=== PATIENT | female | born 1970 | race Caucasian/White ===

== ENCOUNTER 2024-12-17 11:51 | Inpatient (IN) | payer BC, SELFPAY ==
[2024-12-17] VITALS (18 sets, daily range): BP systolic 95–125; BP diastolic 62–79; PULSE 72–114; RESP 16–28; TEMP 36.6–36.7; O2SAT 80–96; BMI 17.2; BMI 16.1
--- NOTE | 2024-12-17 12:31 | XRR_ITS ---
PROCEDURE INFORMATION: Exam: XR Chest Exam date and time: 12/17/2024 12:43 PM Age: 54 years old Clinical indication: Cough and shortness of breath; SOB; Cough; Chest congestion TECHNIQUE: Imaging protocol: Radiologic exam of the chest. Views: 1 view. Total images: 1 COMPARISON: No relevant prior studies available. FINDINGS: Lungs: Pulmonary hyperexpansion with a upper lobe hyperlucency and lung base bronchovascular crowding consistent with emphysema. No lobar consolidation is evident. A focal density of approximately 8 mm projects in the left mid lung laterally and could potentially represent a small pulmonary nodule. Pleural spaces: Blunting of the left costophrenic angle, consistent with small left pleural effusion or pleural thickening. Heart/Mediastinum: Cardiomediastinal silhouette is not enlarged. Bones/joints: No acute osseous abnormality identified. XR/XR chest 1V portable [id number] IMPRESSION: 1. Severe pulmonary emphysema. 2. Patchy densities primarily in the lung bases are of undetermined age without prior studies for comparison. These could represent acute infection superimposed on chronic lung disease, or could all represent sequelae of chronic lung disease. 3. Possible 8 mm nodule left mid lung, appropriate follow-up recommended with CT.
[2024-12-17] MEDS: ipratropium-albuterol 3 mL Neb INHALATION (12:42)
--- NOTE | 2024-12-17 12:42 | W.ED.SOB ---
HPI - SOB/Dyspnea General: Chief Complaint: Shortness of Breath/Dyspnea Stated Complaint: sob Time Seen by Provider: 12/17/24 12:33 Source: patient and family Mode of arrival: ambulatory Limitations: no limitations History of Present Illness: HPI Narrative: This patient was referred to the emergency department by the urgent care clinic. Patient's known tobacco user who states that she periodically gets bronchitis in the wintertime and gets a prescription for a Z-Ricardo and improved. She takes states that approximately 2 weeks ago she started having increasing productive cough and congestion. She did not get her usual treatment and eventually continued to worsen with increasing shortness of breath decreased appetite and decreased intake. 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 She denies influenza vaccine or other vaccines such as COVID-19, RSV etc. She has had fever at home. She does not wear her oxygen at home. No ongoing chest pain vomiting or diarrhea. She has never been hospitalized for any breathing issues. MD elicited complaint: shortness of breath and cough Associated symptoms: Reports fever(s); Deny abdominal pain, chest pain, extremity pain, nausea, palpitations, polydipsia, polyuria, syncope or vomiting Related Data Previous Rx's ?Medication ?Instructions ?Recorded alprazolam 0.5 mg tablet 0.5 mg PO BEDTIME PRN sleep #30 07/24/24 tabs Allergies Allergy/AdvReac Type Severity Reaction Status Date / Time Penicillins AdvReac Intermediate hives Verified 12/17/24 11:27 Review of Systems Const: Reports: fever(s) and chills Eyes: Denies: change in vision ENMT: Denies: throat pain, odynophagia, nasal discharge or nasal congestion Card: Denies: chest pain, palpitations, irregular heart rhythm or syncope Resp: Reports: dyspnea, productive cough and wheezing GI: Denies: abdominal pain, nausea, vomiting or diarrhea : Denies: flank pain, difficulty voiding, dysuria or urinary frequency Musc: Denies: neck pain, back pain, extremity pain or extremity swelling Skin/Breast: Denies: rash Endo: Denies: polyuria or polydipsia Gianfranco/Lymph: Denies: easy bruising or easy bleeding PFS ED PFSH: Medical History (Updated 12/17/24 @ 14:16 by Shukri Quintanilla DO) Insomnia Social History (System 09/06/24 @ 09:49 by Rina Roberto Smoking and tobacco/nicotine status: current every day tobacco/nicotine user Physical Exam Narrative: EXAM NARRATIVE: She is alert and speaks in complete sentences while wearing nasal oxygen. She is very thin appearing but appears to be comfortable Const: COMMON NORMALS: patient oriented x3 and alert GENERAL APPEARANCE: cooperative NUTRITIONAL APPEARANCE: thin ORIENTATION/CONSCIOUSNESS: Yes awake HENMT: COMMON NORMALS: normocephalic, Normal nasal mucous membranes and turbinates present, moist oral mucous membranes and oropharynx normal HEAD & SCALP: normocephalic FACE & SINUS: normal facial exam NOSE: Normal nasal mucous membranes and turbinates present Eye: COMMON NORMALS: Equal, round and reactive pupils present, EOMs intact bilaterally and conjunctivae normal CONJUNCTIVA: Yes conjunctivae normal PUPIL: Yes Equal, round and reactive pupils present Neck/C-Spine: COMMON NORMALS: full ROM, no lymphadenopathy, no JVD and No carotid bruits Chest: COMMONS NORMALS: normal inspection of the chest Resp: AUSCULTATION: rhonchi throughout and wheezes throughout Cardio: COMMON NORMALS: no JVD, regular rate and No murmurs present (Cardio) RATE: regular rate GI: COMMON NORMALS: Normal to inspection, nondistended, normoactive bowel sounds present, Soft to palpation and non-tender PALPATION: Yes Soft to palpation : COMMON NORMALS: Yes no CVA tenderness BLADDER/KIDNEY EXAM: Yes no CVA tenderness Back/Pelvis: COMMON NORMALS: no CVA tenderness, thoracic and lumbar spine normal to inspection and no thoracic nor lumbar tenderness Extremity: COMMON NORMALS: normal to inspection, full ROM, capillary refill normal, no calf tenderness and no pedal edema Neuro: COMMON NORMALS: patient oriented x3, moves all extremities, no focal motor deficits and no sensory deficits noted SENSORIUM/ORIENTATION: Yes alert Psych: COMMON NORMALS: mental status grossly normal Skin: COMMON NORMALS: no rashes or lesions noted and no petechiae GENERAL SKIN EXAM: no rashes or lesions noted Course Reevaluation(s): Reevaluation #1: I informed the patient and her spouse that she has findings of bilateral pneumonia and his oxygen requiring and would benefit from inpatient care. Consultations: Consultation #1: Discussed with Dr. Cox who agreed to place the patient in the hospital for treatment. He did request a D-dimer testing although the patient has no history of thromboembolic disease and no current risk factors for same. Time: 14:07 Vital Signs: Vital signs: Vital Signs Temperature 98.1 F 12/17/24 11:53 Pulse Rate 111 H 12/17/24 12:52 Respiratory Rate 16 12/17/24 12:44 Blood Pressure 121/62 12/17/24 11:53 Pulse Oximetry 94 12/17/24 13:05 Oxygen Delivery Me thod Nasal Cannula 12/17/24 12:44 Oxygen Flow Rate 4 12/17/24 12:44 MDM - SOB/Dyspnea Medical Decision Making This patient presented to the emerged part as noted in the HPI. She had approximately 10 to 14-day duration of illness with productive cough shortness of breath and eventually made her way to the urgent care as noted. Was noted to be hypoxic at that time. She has a chronic tobacco user but no known history of COPD thromboembolic events CHF etc. Differential included likely pneumonia versus exacerbation of undiagnosed COPD, viral illness etc. Her clinical exam also noted that she had findings suggestive of pneumonia as well. Imaging obtained revealed bilateral patchy infiltrates, she had a leukocytosis, a arterial blood gas did not show any significant CO2 retention. Because of her new oxygen requirement and her leukocytosis even though she is taking oral fluids well I think it is reasonable for her to put in observation status for continued treatment and evaluation of response to ensure that she can be discharged safely without any additional oxygen requirement. Lab Data I reviewed the patient's lab results. 12/17/24 12:45 12/17/24 12:45 Labs/Radiology: Radiology Impressions Chest X-Ray 12/17/24 12:31 IMPRESSION: 1. Severe pulmonary emphysema. 2. Patchy densities primarily in the lung bases are of undetermined age without prior studies for comparison. These could represent acute infection superimposed on chronic lung disease, or could all represent sequelae of chronic lung disease. 3. Possible 8 mm nodule left mid lung, appropriate follow-up recommended with CT. Laboratory Results WBC 21.17 10^3/uL (3.29-11.43) H 12/17/24 12:45 RBC 5.45 10^6/uL (3.85-5.65) 12/17/24 12:45 Hgb 15.10 g/dL (11.27-16.99) 12/17/24 12:45 Hct 47.6 % (36-47) H 12/17/24 12:45 MCV 87.3 fl (85-98) 12/17/24 12:45 MCH 27.7 pg (27-33) 12/17/24 12:45 MCHC 31.7 g/dL (30-55) 12/17/24 12:45 RDW 13.9 % (12.1-15.1) 12/17/24 12:45 Plt Count 414 10^3/cmm (157-399) H 12/17/24 12:45 MPV 10.4 fL (7.4-10.4) 12/17/24 12:45 Neut % (Auto) 88.2 % 12/17/24 12:45 Lymph % (Auto) 4.9 % 12/17/24 12:45 Camp % (Auto) 5.5 % 12/17/24 12:45 Eos % (Auto) 0.1 % 12/17/24 12:45 Baso % (Auto) 0.3 % 12/17/24 12:45 Neut # (Auto) 18.66 10^3/uL (1.8-7.7) H 12/17/24 12:45 Lymph # (Auto) 1.0 10^3/uL (0.8-4.8) 12/17/24 12:45 Camp # (Auto) 1.2 10^3/uL (0.2-0.9) H 12/17/24 12:45 Eos # (Auto) 0.0 10^3/uL (0.0-0.8) 12/17/24 12:45 Baso # (Auto) 0.1 10^3/uL (0.0-0.1) 12/17/24 12:45 Nucleated RBC % (auto) 0 % 12/17/24 12:45 Nucleated RBCs # 0.0 /100WBC 12/17/24 12:45 Specimen Type Arterial 12/17/24 12:45 Sample Site Brachial, right 12/17/24 12:45 ABG pH 7.44 (7.35-7.45) 12/17/24 12:45 ABG pCO2 48.1 mmHg (35-45) H 12/17/24 12:45 ABG pO2 79.0 mmHg (80.0-100.0) L 12/17/24 12:45 ABG PO2/FiO2 Ratio 219 12/17/24 12:45 ABG HCO3 32.8 mmol/L (22-26) H 12/17/24 12:45 ABG Base Excess 7.3 mmol/L (-2.0-2.0) H 12/17/24 12:45 Jorge Test Pos 12/17/24 12:45 Hematocrit 45.4 % (37-47) 12/17/24 12:45 Hgb O2 Saturation 94.1 % (95-100) L 12/17/24 12:45 Carboxyhemoglobin 1.7 %THgb (0.4-20.1) 12/17/24 12:45 Methemoglobin 0.2 % (0.4-1.5) L 12/17/24 12:45 Total Hemoglobin 14.8 g/dL (12-16) 12/17/24 12:45 O2 Delivery Device Nc 12/17/24 12:45 O2 Liters/Min 4.0 % 12/17/24 12:45 FiO2 36.0 % 12/17/24 12:45 Primary Montessori Teacher ID Monro 12/17/24 12:45 Sodium 144 mmol/L (136-145) 12/17/24 12:45 Potassium 3.7 mmol/L (3.5-5.1) 12/17/24 12:45 Chloride 98 mmol/L (98-107) 12/17/24 12:45 Carbon Dioxide 32 mmol/L (22-29) H 12/17/24 12:45 Anion Gap 17.7 (5-19) 12/17/24 12:45 BUN 21 mg/dL (6-20) H 12/17/24 12:45 Creatinine 0.4 mg/dL (0.5-0.9) L 12/17/24 12:45 GFR Calculation 167.6 mL/min (90-130) H 12/17/24 12:45 Glucose 131 mg/dL (65-115) H 12/17/24 12:45 Calculated Osmolality 303 mOsm/kg (285-295) H 12/17/24 12:45 Lactic Acid 1.7 mmol/L (0.5-2.2) 12/17/24 12:45 Calcium 9.2 mg/dL (8.5-10.5) 12/17/24 12:45 Total Bilirubin 0.4 mg/dL (0.15-1.2) 12/17/24 12:45 AST 14 U/L (0-32) 12/17/24 12:45 ALT 15 U/L (0-33) 12/17/24 12:45 Alkaline Phosphatase 126 U/L (35-105) H 12/17/24 12:45 NT-Pro-B Natriuret Pep 869 pg/mL (0-125) H 12/17/24 12:45 Total Protein 7.4 g/dL (6.6-8.7) 12/17/24 12:45 Albumin 3.6 g/dL (3.5-5.2) 12/17/24 12:45 Globulin 3.8 g/dL (1.3-4.6) 12/17/24 12:45 All radiology interpretation(s) finalized by discharge Discharge Plan Discharge Patient Disposition: Placed in Observation Clinical Impression: Community acquired pneumonia, Acute exacerbation of chronic obstructive airways disease Condition: Stable Prescriptions: No Action alprazolam 0.5 mg tablet 0.5 mg PO BEDTIME PRN (Reason: sleep) Qty: 30 5RF Referrals: Nasim Caballero MD [Primary Care Provider] - Print Language: Prydeinig Coding Level of Care Code ED Senior Sql Server Developer for Marizol Small
[2024-12-17 12:57] LABS: ABG PCO2 48.1 mmHg (35-45); ABG PH Result 7.44 (7.35-7.45); Arterial Blood Gas Hematocrit 45.4 % (37-47); Base Excess ABG 7.3 mmol/L (-2.0-2.0); Blood Gas Allen Test Pos; Blood Gas Sample Type Arterial; Carboxyhemoglobin 1.7 %THgb (0.4-20.1); HCO3 ABG 32.8 mmol/L (22-26); HGB O2 Sat 94.1 % (95-100); Methemoglobin 0.2 % (0.4-1.5); Total Hemoglobin 14.8 g/dL (12-16)
[2024-12-17 12:58] LABS: Basophils # 0.1 10^3/uL (0.0-0.1); Basophils % 0.3 %; Blood Gas Operator Identificat MONRO; Blood Gas Sample Site Brachial, right; Eosinophils % 0.1 %; Hematocrit 47.6 % (36-47); Lymphocytes % 4.9 %; Mean Corpuscular HGB Conc 31.7 g/dL (30-55); Mean Corpuscular Hemoglobin 27.7 pg (27-33); Mean Corpuscular Volume 87.3 fl (85-98); Mean Platelet Volume 10.4 fL (7.4-10.4); Monocytes # 1.2 10^3/uL (0.2-0.9); Monocytes % 5.5 %; Neutrophils # 18.66 10^3/uL (1.8-7.7); Neutrophils % 88.2 %; Nucleated Red Blood Cells % 0 %; Oxygen Device NC; PO2 FiO2 Ratio Arterial Blood 219; Platelet Count 414 10^3/cmm (157-399); Red Blood Count 5.45 10^6/uL (3.85-5.65); Red Cell Distribution Width 13.9 % (12.1-15.1); White Blood Count 21.17 10^3/uL (3.29-11.43)
[2024-12-17] MEDS: methylPREDNISolone sod succ 125 mg/2 mL INJ 60 MG IVP (13:07)
[2024-12-17] MEDS: lactated ringers 1,000 ML 999 ML IV (13:07)
[2024-12-17 13:10] LABS: Lactic Sepsis W/Reflex 1.7 mmol/L (0.5-2.2)
[2024-12-17 13:22] LABS: Alanine Aminotransferase 15 U/L (0-33); Albumin Level 3.6 g/dL (3.5-5.2); Alkaline Phosphatase 126 U/L (35-105); Anion Gap 17.7 (5-19); Aspartate Amino Transferase 14 U/L (0-32); Blood Urea Nitrogen 21 mg/dL (6-20); Calcium 9.2 mg/dL (8.5-10.5); Carbon Dioxide 32 mmol/L (22-29); Chloride 98 mmol/L (98-107); Creatinine Clr Calc Pharmacy 122.3686; Globulin 3.8 g/dL (1.3-4.6); Glomerular Filtration Rate 167.6 mL/min (90-130); Glucose 131 mg/dL (65-115); NT Pro B Type Natriuretic Pept 869 pg/mL (0-125); Osmolality Calculated 303 mOsm/kg (285-295); Potassium 3.7 mmol/L (3.5-5.1); Sodium 144 mmol/L (136-145); Total Bilirubin 0.4 mg/dL (0.15-1.2); Total Protein 7.4 g/dL (6.6-8.7)
--- NOTE | 2024-12-17 13:55 | ECG_ITS ---
[facility] Date: 2024-12[facility]17 Pat Name: Monika Meng (Marie) Department: Room: [facility] Gender: Female Sample Maker: : 1970 Requested By: Shukri Quintanilla Order Number: [id number] Reading MD: NEIDA KELLY Measurements Intervals [place] Rate: 96 P: 82 [place]: 140 QRS: 80 QRSD: 90 T: 66 QT: 384 QTc: 487 Interpretive Statements SINUS RHYTHM POSSIBLE RIGHT VENTRICULAR CONDUCTION DELAY [RSR (QR) IN V1/V2] No previous ECG available for comparison Electronically Signed On 12-17-2024 20:46:39 DEVELOPER [employer]ATE by NEIDA KELLY [email or web address]
[2024-12-17 14:25] LABS: D Dimer 1.38 ug/mLFEU (0-0.59)
--- NOTE | 2024-12-17 14:27 | CTR_ITS ---
PROCEDURE INFORMATION: Exam: CTA Chest With Contrast Exam date and time: 12/17/2024 2:53 PM Age: 54 years old Clinical indication: Abnormal findings; Abnormal diagnostic tests; Elevated d-dimer; Hyperventilation; Additional info: Hypoxia, elevated dimer, tachy TECHNIQUE: Imaging protocol: Computed tomographic angiography of the chest with contrast. Exam focused on the arteries. 3D rendering (Not supervised by radiologist): MIP and/or 3D reconstructed images were created by the technologist. Total images: 962 Radiation optimization: All CT scans at this facility use at least one of these dose optimization techniques: automated exposure control; mA and/or kV adjustment per patient size (includes targeted exams where dose is matched to clinical indication); or iterative reconstruction. Contrast material: OMNIPAQUE 350; Contrast volume: 61 ml; Contrast route: INTRAVENOUS (IV); COMPARISON: CR (CHEST, ) 12/17/2024 12:43 PM RADIATION DOSE METRICS: Total DLP (mGy-cm): 161.11 FINDINGS: Limitations: Mild motion artifact. Pulmonary arteries: No pulmonary artery embolus is identified. The main pulmonary artery is not significantly enlarged measuring approximately 21 mm. Aorta: The thoracic aorta is not enlarged. Lungs: Image portions of the distal trachea as well as right and left mainstem bronchi are patent. Severe centrilobular emphysema. Biapical pleural-parenchymal densities most consistent with scarring. Scattered tree-in-bud opacities are identified, most prominent in the right lower lobe (series 5, image 52) scattered nodular densities including a 4 x 6 mm right lower lobe nodule (series 7, image 443). Consolidation anteroinferiorly in the right middle lobe. Peripheral right lower lobe 7 mm nodule on series 7, image 459 and consolidated densities in the left lingula in particular. Multifocal smooth peribronchial thickening. Pleural spaces: No pleural effusion or pneumothorax identified. Heart: The heart is not enlarged. No pericardial effusion. Lymph nodes: Borderline aortopulmonary window lymph nodes up to 1 cm. Enlarged subcarinal node at 1.2 cm. Enlarged right hilar nodes at up to 1.2 cm short axis, and borderline left hilar nodes up to 1 cm. Bones/joints: Osseous structures demonstrate no acute appearing abnormality. Soft tissues: No soft tissue fluid collection identified.. Other findings: Imaged upper abdomen demonstrates no acute appearing abnormality. CT/CT angio chest PE protcl [id number] IMPRESSION: 1. No pulmonary artery embolus identified. 2. Prominent mediastinal and bilateral hilar nodes are nonspecific but may be reactive given pulmonary findings. 3. Severe emphysema. Peribronchial thickening suggesting a component of chronic bronchitis. 4. Multiple areas of tree-in-bud opacity. Tree-in-bud opacities carry a broad differential diagnosis, but are most commonly reloated to small airways disease: infectious bronchiolitis (viral, mycoplasma, mycobacterial, other), or aspiration. Other etiologies would be considered in the appropriate clinical context. 5. Scattered somewhat nodular appearing densities, measuring up to 7 mm.For patients at low risk (minimal or absent history of smoking and of other known risk factors), recommend CT Chest at 3-6 months, then consider CT Chest at 18-24 months. For patients at high risk (history of smoking or of other known risk factors), recommend CT Chest at 3-6 months, then CT Chest at 18-24 months. (Reference: Rock) 6. Scattered consolidated densities that are nonspecific but may represent pneumonia 7. . Please see above additional comments. COMMENTS: The presence of pulmonary emphysema on CT is an independent risk factor for lung cancer. In the absence of a history or active diagnosis of lung cancer, it is recommended that this patient with emphysema be evaluated for enrollment in a low dose CT lung cancer screening program. REFERENCES: Rock Brewer et al. Guidelines for Management of Incidental Pulmonary Nodules Detected on CT Images: From the Fleischner Society 2017. Radiology. 2017;284(1):228-243.
[2024-12-17 14:30] LABS: Troponin(5th) Baseline < 6 ng/L (0-10)
[2024-12-17] MEDS: cefTRIAXone 2,000 mg SDV 2000 MG IVP (14:36)
[2024-12-17] MEDS: AZITHROMYCIN ADD-Vantage 500 MG in 0.9% NaCl ADD-Vantage 250 ML 250 MG IV (14:36)
[2024-12-17 14:38] LABS: Procalcitonin 0.05 ng/mL (0-0.5)
[2024-12-17 14:55] LABS: Influenza A NEGATIVE (Negative); Influenza B NEGATIVE (Negative); Respiratory Syncytial Virus Ce NEGATIVE (Negative); SARS-CoV-2 PCR NEGATIVE (Negative)
[2024-12-17] MEDS: iohexol 350 mg/mL 500 mL Btl (per mL) IV (14:59)
[2024-12-17 15:44] LABS: Troponin 5 2HR 7.31 ng/L (0-10); Troponin 5 2HR Delta 1.31001 ABS# (0-10)
[2024-12-17 15:55] LABS: Estmated Average Glucose 128; Hemoglobin A1C 6.1 % (4.0-6.0)
--- NOTE | 2024-12-17 15:55 | ECG_ITS ---
[facility] Test Date: 2024-12-17 Pat Name: Monika Meng (Marie) Department: Room: [facility] Gender: Female Fur Blender: : 1970 Requested By: Shukri Quintanilla Order Number: [id number] Reading MD: NEIDA KELLY Measurements Intervals [place] Rate: 92 P: 84 [place]: 143 QRS: 72 QRSD: 93 T: 58 QT: 391 QTc: 484 Interpretive Statements SINUS RHYTHM WITH SINUS ARRHYTHMIA INCOMPLETE RIGHT BUNDLE BRANCH BLOCK [90+ ms QRS DURATION, TERMINAL R IN V1/V2, 40+ ms S IN I/aVL/V4/V5/V6] Compared to ECG 12/17/2024 14:29:04 Incomplete right bundle-branch block now present Electronically Signed On 12-17-2024 21:05:52 MEDICINAL PLANT PICKER by NEIDA KELLY [id number]
[2024-12-17 16:15] LABS: Iron 16 ug/dL (37-145); Percent Saturation 7.6 % (20-50); Thyroid Stimulating Hormone 2.13 uIU/mL (0.27-4.20); Total Iron Binding Capacity 209 mcg/dl; Unsaturated Iron Binding 193 ug/dL (112-347)
[2024-12-17] MEDS: pantoprazole 40 mg SDV IVP (16:32)
[2024-12-17 16:35] LABS: Vitamin B12 > 2000 pg/mL (232-1245)
--- NOTE | 2024-12-17 16:56 | P.HP_ITS ---
Providers/Chief Complaint 2 Admitting Physician: Kyree Barahona MD Primary Care Provider: Nasim Caballero MD Chief Complaint: sob History of Present Illness Monika Meng (Marie) is a 54 year old female with past medical history of COPD, chronic smoker presents to the ER today because of worsening difficulty in breathing over the last 2 weeks. Patient states she started having exertional difficulty in breathing for last 2 weeks associated with expectoration. Patient has been having subjective feel of fever for which she has been taking Motrin. Patient was improving till last . Today is Wednesday. Since she started feeling worse again with episode of dizziness. When she present to the ER she was found to be hypoxic requiring up to 4 L of oxygen supplementation. Review of Systems 2 General: Reports: 10 or more systems reviewed and unremarkable except in HPI and below Const: Denies: fever(s), chills, body aches, change in appetite, change in weight, malaise, night sweats, diaphoresis, change in sleep pattern, daytime sleepiness or snoring Eyes: Denies: change in vision, blurry vision, photophobia, eye discomfort or eye discharge ENMT: Denies: throat pain, enlarged tonsils, hoarseness, mouth pain, oral sores, dry mouth, tinnitus, nasal congestion or post nasal drip Card: Denies: chest pain, palpitations, irregular heart rhythm, edema, swelling of feet/ankles, lightheadedness, syncope, pre-syncope, dyspnea on exertion, orthopnea, leg pain with exertion or acrocyanosis Resp: Denies: dyspnea, productive cough, non-productive cough, wheezing, stridor, pain on inspiration, change in phlegm color, hemoptysis or chest congestion GI: Denies: abdominal pain, nausea, vomiting, hematemesis, coffee ground emesis, dysphagia, heartburn, diarrhea, constipation, bloating, GI cramping, change in bowel habits, pain on defecation, hematochezia or melena : Denies: flank pain, dysuria, urinary frequency, urinary urgency, urinary hesitancy, nocturia or hematuria Musc: Denies: neck pain, back pain, extremity pain, joint pain, joint swelling, joint redness, joint stiffness or limited range of motion Neuro: Denies: headache(s), numbness in extremities, weakness in extremities, sensory changes, lack of coordination, difficulty walking, frequent falls, dizziness, vertigo, confusion, Slurred speech present, difficulty communicating thoughts or seizure-like activity Psych: Denies: anxiety, depression, mood swings, panic attacks, hopelessness or irritability Endo: Denies: polyuria, polydipsia, tired all the time, cold intolerance, excessive sweating, flushing or heat intolerance Gianfranco/Lymph: Denies: easy bruising or easy bleeding All/Imm: Denies: tongue swelling, facial swelling or acute wheezing Medications/Allergies Home Medications ?Medication ?Instructions ?Recorded ?Confirmed ?Last Taken ?Type alprazolam 0.5 mg tablet 0.5 mg PO BEDTIME PRN sleep #30 07/24/24 12/17/24 Unknown Rx tabs Allergies Allergy/AdvReac Type Severity Reaction Status Date / Time Penicillins AdvReac Intermediate hives Verified 12/17/24 11:27 PFSH Acute 2 PFSH: Medical History (Updated 12/17/24 @ 17:00 by Kyree Barahona MD) Insomnia Social History (System 09/06/24 @ 09:49 by Rina Luciano) Smoking and tobacco/nicotine status: current every day tobacco/nicotine user Vitals/I&O/Wt Last Vital Signs Temp 98.1 F 12/17/24 11:53 Pulse 96 12/17/24 14:45 Resp 19 H 12/17/24 14:45 BP 121/62 12/17/24 11:53 Pulse Ox 80 L 12/17/24 16:00 O2 Del Method Nasal Cannula 12/17/24 15:19 O2 Flow Rate 4 12/17/24 12:44 12/17/24 12/17/24 12/17/24 06:59 14:59 22:59 Intake Total 1000 / 1000 Balance 1000 / 1000 Weight last 48 hrs Weight 42.638 kg Physical Exam 2 Narrative: General: No acute distress, AO x3, Thin built HEENT: PERRLA, pupils bilaterally equal and reactive Chest: Bilateral bronchial breath sounds all lung mahajan with occasional rhonchi and fine and coarse crackles distributed all over lung mahajan CVS: S1-S2 regular, no murmurs, no tachycardia, no gallops, no rubs Abdomen: Soft, nontender, no organomegaly, bowel sounds present Neuro: No focal deficits, no facial deformity, AO x3, power 5/5 in all limbs Data 12/17/24 12:45 12/17/24 12:45 A&P Assessment and plan (1) Community acquired pneumonia: COVID-19/flu/RSV negative. Check sputum culture, blood culture, MRSA swab, bacterial antigen. Start on treatment for community-acquired pneumonia with IV ceftriaxone and oral azithromycin. Add vancomycin if MRSA swab positive. De-escalate as per culture sensitivities. Qualifiers: Laterality: unspecified laterality Qualified Code(s): J18.9 - Pneumonia, unspecified organism (2) Acute exacerbation of chronic obstructive airways disease: Solu-Medrol 40 mg every 6 hourly. Oxygen supplementation keeping saturation over 88%. Pulmicort twice daily, ipratropium, Xopenex every 6 hours. No formal diagnosis. Chronic smoker. Evident on CT imaging. Will need a formal PFT as an outpatient. (3) Hypoxic respiratory failure: Most likely in setting of COPD exacerbation community-acquired pneumonia. Check D-dimer. If positive will plan for CTA. Check QuantiFERON. Patient has a history of being worked up for night sweats as an outpatient by PCP. Check LDH, fungitell (4) Smoker: Nicotine patch. Counseled against smoking. Plan Full code Regular diet Heparin 5000 Q12 for DVT prophylaxis Protonix for PUD prophylaxis PDMP PDMP Reviewed: Not Reviewed Attestations 2 Medical Necessity Statement*: Admit for more than 2 midnights for management of hypoxic respiratory failure in setting of COPD exacerbation due to community-acquired pneumonia Diagnoses Community acquired pneumonia J18.9 Laterality: unspecified laterality Acute exacerbation of chronic obstructive airways disease J44.1 Hypoxic respiratory failure J96.91 Smoker F17.200
[2024-12-17] MEDS: nicotine 7 mg Patch 1 PATCH TRANSDERMA (17:16)
[2024-12-17] MEDS: heparin 5,000 unit/mL INJ 1 mL 5000 UNIT SUBCUT (17:17)
[2024-12-17] MEDS: docusate sodium 100 mg Capsule PO (17:20)
[2024-12-17 17:33] LABS: Lactate Dehydrogenase 203 U/L (135-214)
[2024-12-17 18:41] LABS: Troponin 5 6HR Delta 0.00001 ng/L (0-12)
[2024-12-17] MEDS: methylPREDNISolone sod succ 40 mg/mL INJ IVP (19:56)
[2024-12-17] MEDS: ipratropium 0.5 mg/2.5 mL Neb INHALATION (21:35)
[2024-12-17] MEDS: levalbuterol 0.63 mg/3 mL Neb INHALATION (21:36)
[2024-12-17] MEDS: budesonide 0.5 mg/2 mL Neb INHALATION (21:36)
[2024-12-17 22:16] LABS: Bilirubin Urine Negative (Negative); Blood Urine Trace (Negative); Glucose Urine UA Trace (Normal); Ketones Urine 1+ (Negative); Leukocyte Esterase Urine Negative (Negative); Nitrate Urine Negative (Negative); Protein Urine 2+ (Negative); Urine Appearance Clear (CLEAR); Urine Color Yellow (Yellow)
[2024-12-17 22:21] LABS: Add Urine Microscopic? YES; Bacteria Urine None Seen /hpf; Hyaline Casts Urine 1.21 /lpf; Squamous Epithelial Cell Urine 0-5 /hpf (0-5); WBC Urine 0-5 /hpf (0-5)
[2024-12-17 22:24] LABS: Specific Gravity, Urine 1.057 (1.005-1.030)
[2024-12-17 22:29] LABS: MRSA PCR OZH (swab) NOT DETECTED (Not Detecte)
[2024-12-17] MEDS: lanolin oint 7 gm 1 APPLIC TOPICAL (22:55)
[2024-12-18] VITALS (12 sets, daily range): BP systolic 114–135; BP diastolic 64–77; PULSE 70–100; RESP 16–18; TEMP 36.6–37; O2SAT 86–97
[2024-12-18] MEDS: methylPREDNISolone sod succ 40 mg/mL INJ IVP ×4 (01:55→20:18)
[2024-12-18] MEDS: levalbuterol 0.63 mg/3 mL Neb INHALATION ×4 (02:08→20:32)
[2024-12-18] MEDS: ipratropium 0.5 mg/2.5 mL Neb INHALATION ×4 (02:08→20:32)
[2024-12-18 05:36] LABS: Basophils % 0.1 %; Hematocrit 39.7 % (36-47); Lymphocytes # 0.7 10^3/uL (0.8-4.8); Lymphocytes % 5.1 %; Mean Corpuscular HGB Conc 32.2 g/dL (30-55); Mean Corpuscular Hemoglobin 28.5 pg (27-33); Mean Corpuscular Volume 88.4 fl (85-98); Mean Platelet Volume 11.1 fL (7.4-10.4); Monocytes # 0.1 10^3/uL (0.2-0.9); Monocytes % 0.6 %; Neutrophils # 11.96 10^3/uL (1.8-7.7); Neutrophils % 93.4 %; Nucleated Red Blood Cells % 0 %; Platelet Count 378 10^3/cmm (157-399); Red Blood Count 4.49 10^6/uL (3.85-5.65); Red Cell Distribution Width 13.9 % (12.1-15.1)
[2024-12-18 05:56] LABS: Alanine Aminotransferase 15 U/L (0-33); Albumin Level 3.1 g/dL (3.5-5.2); Alkaline Phosphatase 102 U/L (35-105); Anion Gap 16.7 (5-19); Aspartate Amino Transferase 15 U/L (0-32); Blood Urea Nitrogen 21 mg/dL (6-20); Calcium 8.6 mg/dL (8.5-10.5); Carbon Dioxide 29 mmol/L (22-29); Chloride 98 mmol/L (98-107); Creatinine Clr Calc Pharmacy 153.9356; Globulin 3.2 g/dL (1.3-4.6); Glomerular Filtration Rate 233.6 mL/min (90-130); Glucose 148 mg/dL (65-115); Osmolality Calculated 296 mOsm/kg (285-295); Phosphorus 3.2 mg/dL (2.5-4.5); Potassium 3.7 mmol/L (3.5-5.1); Sodium 140 mmol/L (136-145); Total Bilirubin 0.4 mg/dL (0.15-1.2); Total Protein 6.3 g/dL (6.6-8.7)
[2024-12-18 06:07] LABS: Procalcitonin 0.05 ng/mL (0-0.5)
[2024-12-18 06:16] LABS: Folate Level 17.5 ng/mL (4.8-37.3)
[2024-12-18 06:27] LABS: Chol HDL Ratio 4.21 mg/dL (0.0-4.40); Cholesterol 139 mg/dL (0-200); HDL Cholesterol 33 mg/dL (60-100); LDL Cholesterol Calculated 88 mg/dL (50-129); LDL HDL Ratio 2.67 RATIO (0.00-3.22); Triglycerides 90 mg/dL (0-150)
[2024-12-18] MEDS: heparin 5,000 unit/mL INJ 1 mL 5000 UNIT SUBCUT ×2 (06:46→17:19)
--- NOTE | 2024-12-18 07:43 | P.PN_ITS ---
Subjective 2 Subjective: No overnight events patient is stating that she has been losing weight, endorsing some swelling for last 2 weeks, no recent traveling, risk of TB very low Doing well on 4 L nasal cannula No active complaints Vitals/I&O/Wt Last Vital Signs Temp 98.2 F 12/18/24 04:20 Pulse 79 12/18/24 04:20 Resp 16 12/18/24 04:20 BP 119/70 12/18/24 04:20 Pulse Ox 93 12/18/24 04:20 O2 Del Method Nasal Cannula 12/18/24 04:20 O2 Flow Rate 3 12/18/24 02:08 12/17/24 12/18/24 12/18/24 22:59 06:59 14:59 Intake Total 250 / 1250 240 / 1490 Output Total 100 / 100 300 / 400 Balance 150 / 1150 -60 / 1090 Weight last 48 hrs Weight 44.452 kg Weight 42.683 kg Weight 42.638 kg Physical Exam 2 Narrative: Mild wheezing Currently doing well on 4 L nasal cannula Dehydrated Malnourished Sarcopenia S1, S2 Abdomen soft GCS 15 AOx4 Nonfocal neuroexam Data 12/18/24 04:37 12/18/24 04:37 Micro: Microbiology 12/17/24 18:18 Blood Culture - Preliminary Blood SPECIMEN COLLECTED 12/17/24 18:14 Blood Culture - Preliminary Blood SPECIMEN COLLECTED 12/17/24 13:12 Gram Stain - Final Sputum - Expectorated Sputum A&P Assessment and plan (1) URI (upper respiratory infection): (2) Community acquired pneumonia: Qualifiers: Laterality: unspecified laterality Qualified Code(s): J18.9 - Pneumonia, unspecified organism (3) Acute exacerbation of chronic obstructive airways disease: (4) Hypoxic respiratory failure: (5) Smoker: (6) Night sweats: Plan acute COPD exacerbation Likely undiagnosed COPD Will need LAMA LABA ICS combination at discharge Acute hypoxia requiring 4 L Risk of TB very low, Afebrile Continue DuoNeb treatment along steroids Fungitell, LDH and QuantiFERON requested by the admitting physician Continue ceftriaxone and Zpack Patient will need oxygen evaluation before discharge With history of malnourishment sarcopenia DVT prophylaxis heparin No history of cancer Active smoker Patient will need outpatient pulmonary referral Anticipating discharge once we rule out TB, clinically doing well PDMP PDMP Reviewed: Not Reviewed Attestations 2 Medical Necessity Statement*: Continue hospitalization, at this point we will have to wait for tuberculosis test report otherwise patient clinically doing well Diagnoses URI (upper respiratory infection) J06.9 Community acquired pneumonia J18.9 Laterality: unspecified laterality Acute exacerbation of chronic obstructive airways disease J44.1 Hypoxic respiratory failure J96.91 Smoker F17.200 Night sweats R61
[2024-12-18] MEDS: budesonide 0.5 mg/2 mL Neb INHALATION ×2 (08:06→20:32)
[2024-12-18] MEDS: azithromycin 250 mg Tablet 500 MG PO (08:17)
--- NOTE | 2024-12-18 09:53 | PC.CHAP ---
Pastoral Care Encounter/Spiritual Assessment Type of Contact [] Declined diamond wheel edger visit [] Patient/Family/Request visit [] Outpatient visit [] Follow-up visit [] Physician referral [] Code/Alert [x] Routine visit [] Staff referral [] Actively dying [] Patient sleeping [] Family support [] [] Out of room [] Palliative care [] [] Receiving care in room [] Pre-surgical visit [] Trauma [] Long length of stay [] ICU visit [] Other: Relational/Emotional Strength [] Patient feels connected with others/family/visitors/staff [] Distress [] Loneliness/isolation [] Abandonment Spirituality of Patient [x] Person of Xenia [] Attends Quaker of their Xenia [x] Believes in Prayer [] Reads Bible or Sabianism materials [] There are Spiritual issues to be addressed Charge Loader Interventions [x] Prayer [x] Active listening [] Non-anxious presence [] Spiritual/emotional support [] Crisis/trauma care [] Spiritual counseling [] Bereavement support [] Provided bereavement packet [] Provided Bible/devotional materials [] Provided toy/stuffed animal, coloring book to patient or family member [] Provided Communion [] Anointing/[place] [] Salvation [x] Completed spiritual assessment [] Other: Impact on Illness or Injury [] Angry [] Fearful [] Anxious [] Often cries [] Exhaustion [] Unable to work [] Unable to attend latter day [] Unable to walk/stand [] Unable to read [] Unable to drive [] Unable to eat/drink [] Unable to sleep [] Unable to be with family [] Patient intubated [] Other: Summary Time spent with patient 5 min
[2024-12-18] MEDS: pantoprazole 40 mg SDV IVP (17:16)
[2024-12-18] MEDS: cefTRIAXone 1,000 mg SDV 1000 MG IVP (17:17)
[2024-12-18] MEDS: ALPRAZolam 0.5 mg Tablet PO (20:18)
[2024-12-19] MEDS: ipratropium 0.5 mg/2.5 mL Neb INHALATION ×2 (01:30→08:22)
[2024-12-19] MEDS: levalbuterol 0.63 mg/3 mL Neb INHALATION ×2 (01:30→08:22)
[2024-12-19 01:31] VITALS: PULSE 76; RESP 16; O2SAT 99
[2024-12-19 03:51] VITALS: BP 112/66; PULSE 90; RESP 18; TEMP 36.6; O2SAT 97
[2024-12-19 05:29] LABS: Basophils % 0.2 %; Hematocrit 34.9 % (36-47); Lymphocytes # 0.8 10^3/uL (0.8-4.8); Lymphocytes % 6.4 %; Mean Corpuscular HGB Conc 31.8 g/dL (30-55); Mean Corpuscular Hemoglobin 28.2 pg (27-33); Mean Corpuscular Volume 88.8 fl (85-98); Monocytes # 0.5 10^3/uL (0.2-0.9); Monocytes % 3.7 %; Neutrophils # 10.93 10^3/uL (1.8-7.7); Neutrophils % 88.6 %; Nucleated Red Blood Cells % 0 %; Platelet Count 350 10^3/cmm (157-399); Red Blood Count 3.93 10^6/uL (3.85-5.65); Red Cell Distribution Width 14.1 % (12.1-15.1); White Blood Count 12.33 10^3/uL (3.29-11.43)
[2024-12-19 05:46] LABS: Alanine Aminotransferase 14 U/L (0-33); Albumin Level 2.8 g/dL (3.5-5.2); Alkaline Phosphatase 77 U/L (35-105); Anion Gap 13.3 (5-19); Aspartate Amino Transferase 17 U/L (0-32); Blood Urea Nitrogen 25 mg/dL (6-20); Calcium 8.3 mg/dL (8.5-10.5); Carbon Dioxide 32 mmol/L (22-29); Chloride 103 mmol/L (98-107); Creatinine Clr Calc Pharmacy 116.6309; Globulin 2.8 g/dL (1.3-4.6); Glomerular Filtration Rate 167.6 mL/min (90-130); Glucose 126 mg/dL (65-115); Osmolality Calculated 304 mOsm/kg (285-295); Potassium 4.3 mmol/L (3.5-5.1); Sodium 144 mmol/L (136-145); Total Bilirubin 0.2 mg/dL (0.15-1.2); Total Protein 5.6 g/dL (6.6-8.7)
[2024-12-19 08:00] VITALS: BP 117/70; PULSE 70; PULSE 87; RESP 16; RESP 17; TEMP 36.9; O2SAT 90; O2SAT 91
[2024-12-19] MEDS: budesonide 0.5 mg/2 mL Neb INHALATION (08:22)
[2024-12-19] MEDS: nicotine 7 mg Patch 1 PATCH TRANSDERMA (08:51)
[2024-12-19] MEDS: docusate sodium 100 mg Capsule PO (08:51)
[2024-12-19] MEDS: azithromycin 250 mg Tablet 500 MG PO (08:51)
[2024-12-19] MEDS: heparin 5,000 unit/mL INJ 1 mL 5000 UNIT SUBCUT (08:52)
[2024-12-19] MEDS: methylPREDNISolone sod succ 40 mg/mL INJ IVP (08:52)
--- NOTE | 2024-12-19 09:12 | P.DS_ITS ---
Discharge Providers Date of Admission: 12/17/24 14:06 Date of Discharge: December 18, 2024 Attending Provider at Admission: Kyree Barahona MD Attending Provider at Discharge: Fransisco Aguilar MD Primary Care Provider: Nasim Caballero MD Diagnoses at Discharge Discharge Diagnosis (1) URI (upper respiratory infection): Status: Acute (2) Community acquired pneumonia: Status: Acute Qualifiers: Laterality: unspecified laterality Qualified Code(s): J18.9 - Pneumonia, unspecified organism (3) Acute exacerbation of chronic obstructive airways disease: Status: Acute (4) Hypoxic respiratory failure: Status: Acute (5) Smoker: Status: Acute (6) Night sweats: Status: Acute Reason for Visit Reason for Visit: sob Hospital Course Hospital Course 54-year femaleActive smoker, came in with worsening of shortness of breath, she was diagnosed with acute COPD exacerbation, required 2 to 3 L of oxygen during hospitalization, for her wheezing she received steroids, qualify for oxygen at the time of discharge, CTA chest was done to rule out PE, she does have tree-in-bud appearance bronchiolitis, respiratory panel is negative, no signs of thromboembolic disease, patient will get LAMA LABA ICS combination at the time of discharge along albuterol. She will also get Medrol pack 1 week course. Patient has been counseled to quit smoking. Will give her referral to see a telegraph repeater mechanic as well. Patient has been instructed not to attend her work until she hears back regarding her tuberculosis test. Physical Exam Narrative: Awake and alert Sarcopenia GCS 15 No active wheezing Currently on room air saturating 90% Discharge Data Studies Completed and Pending Completed Studies During Hospitalization Category Date Time Status CTA chest [CT angio chest PE protcl 20173] Stat Cat Scan 12/17/24 14:27 Completed XR chest 1V portable [id number] Stat Exams 12/17/24 12:31 Completed Pending at discharge Category Date Time Status Blood Culture Stat Lab 12/17/24 18:18 Results Complete Blood Count w/Auto AM LABS Lab 12/19/24 04:00 Ordered Complete Blood Count w/Auto AM LABS Lab 12/20/24 04:00 Ordered Comprehensive Metabolic Panel AM LABS Lab 12/19/24 04:00 Ordered Comprehensive Metabolic Panel AM LABS Lab 12/20/24 04:00 Ordered Fungitell Glucan Assay (Blood) Routine Lab 12/17/24 18:14 Received MTB Complex & Rifampin Sputum Routine Lab 12/17/24 13:12 Received [id number] Plus Routine Lab 12/17/24 18:14 Received Sputum Culture and Gram Stain Stat Lab 12/17/24 13:12 Results Radiology Impressions Chest X-Ray 12/17/24 12:31 IMPRESSION: 1. Severe pulmonary emphysema. 2. Patchy densities primarily in the lung bases are of undetermined age without prior studies for comparison. These could represent acute infection superimposed on chronic lung disease, or could all represent sequelae of chronic lung disease. 3. Possible 8 mm nodule left mid lung, appropriate follow-up recommended with CT. Chest CTA 12/17/24 14:27 IMPRESSION: 1. No pulmonary artery embolus identified. 2. Prominent mediastinal and bilateral hilar nodes are nonspecific but may be reactive given pulmonary findings. 3. Severe emphysema. Peribronchial thickening suggesting a component of chronic bronchitis. 4. Multiple areas of tree-in-bud opacity. Tree-in-bud opacities carry a broad differential diagnosis, but are most commonly reloated to small airways disease: infectious bronchiolitis (viral, mycoplasma, mycobacterial, other), or aspiration. Other etiologies would be considered in the appropriate clinical context. 5. Scattered somewhat nodular appearing densities, measuring up to 7 mm.For patients at low risk (minimal or absent history of smoking and of other known risk factors), recommend CT Chest at 3-6 months, then consider CT Chest at 18-24 months. For patients at high risk (history of smoking or of other known risk factors), recommend CT Chest at 3-6 months, then CT Chest at 18-24 months. (Reference: Rock) 6. Scattered consolidated densities that are nonspecific but may represent pneumonia 7. . Please see above additional comments. COMMENTS: The presence of pulmonary emphysema on CT is an independent risk factor for lung cancer. In the absence of a history or active diagnosis of lung cancer, it is recommended that this patient with emphysema be evaluated for enrollment in a low dose CT lung cancer screening program. REFERENCES: Rock Brewer et al. Guidelines for Management of Incidental Pulmonary Nodules Detected on CT Images: From the Fleischner Society 2017. Radiology. 2017;284(1):228-243. Laboratory Results WBC 12.80 10^3/uL (3.29-11.43) H 12/18/24 04:37 RBC 4.49 10^6/uL (3.85-5.65) 12/18/24 04:37 Hgb 12.80 g/dL (11.27-16.99) 12/18/24 04:37 Hct 39.7 % (36-47) 12/18/24 04:37 MCV 88.4 fl (85-98) 12/18/24 04:37 MCH 28.5 pg (27-33) 12/18/24 04:37 MCHC 32.2 g/dL (30-55) 12/18/24 04:37 RDW 13.9 % (12.1-15.1) 12/18/24 04:37 Plt Count 378 10^3/cmm (157-399) 12/18/24 04:37 MPV 11.1 fL (7.4-10.4) H 12/18/24 04:37 Neut % (Auto) 93.4 % 12/18/24 04:37 Lymph % (Auto) 5.1 % 12/18/24 04:37 Donley % (Auto) 0.6 % 12/18/24 04:37 Eos % (Auto) 0.0 % 12/18/24 04:37 Baso % (Auto) 0.1 % 12/18/24 04:37 Neut # (Auto) 11.96 10^3/uL (1.8-7.7) H 12/18/24 04:37 Lymph # (Auto) 0.7 10^3/uL (0.8-4.8) L 12/18/24 04:37 Donley # (Auto) 0.1 10^3/uL (0.2-0.9) L 12/18/24 04:37 Eos # (Auto) 0.0 10^3/uL (0.0-0.8) 12/18/24 04:37 Baso # (Auto) 0.0 10^3/uL (0.0-0.1) 12/18/24 04:37 Nucleated RBC % (auto) 0 % 12/18/24 04:37 Nucleated RBCs # 0.0 /100WBC 12/18/24 04:37 D-Dimer 1.38 ug/mLFEU (0-0.59) H 12/17/24 12:45 Specimen Type Arterial 12/17/24 12:45 Sample Site Brachial, right 12/17/24 12:45 ABG pH 7.44 (7.35-7.45) 12/17/24 12:45 ABG pCO2 48.1 mmHg (35-45) H 12/17/24 12:45 ABG pO2 79.0 mmHg (80.0-100.0) L 12/17/24 12:45 ABG PO2/FiO2 Ratio 219 12/17/24 12:45 ABG HCO3 32.8 mmol/L (22-26) H 12/17/24 12:45 ABG Base Excess 7.3 mmol/L (-2.0-2.0) H 12/17/24 12:45 Jorge Test Pos 12/17/24 12:45 Hematocrit 45.4 % (37-47) 12/17/24 12:45 Hgb O2 Saturation 94.1 % (95-100) L 12/17/24 12:45 Carboxyhemoglobin 1.7 %THgb (0.4-20.1) 12/17/24 12:45 Methemoglobin 0.2 % (0.4-1.5) L 12/17/24 12:45 Total Hemoglobin 14.8 g/dL (12-16) 12/17/24 12:45 O2 Delivery Device Nc 12/17/24 12:45 O2 Liters/Min 4.0 % 12/17/24 12:45 FiO2 36.0 % 12/17/24 12:45 Fiction And Nonfiction Writer Prose ID Monro 12/17/24 12:45 Sodium 140 mmol/L (136-145) 12/18/24 04:37 Potassium 3.7 mmol/L (3.5-5.1) 12/18/24 04:37 Chloride 98 mmol/L (98-107) 12/18/24 04:37 Carbon Dioxide 29 mmol/L (22-29) 12/18/24 04:37 Anion Gap 16.7 (5-19) 12/18/24 04:37 BUN 21 mg/dL (6-20) H 12/18/24 04:37 Creatinine 0.3 mg/dL (0.5-0.9) L 12/18/24 04:37 GFR Calculation 233.6 mL/min (90-130) H 12/18/24 04:37 Glucose 148 mg/dL (65-115) H 12/18/24 04:37 Estimat Average Glucose 128 12/17/24 12:45 Hemoglobin A1c 6.1 % (4.0-6.0) H 12/17/24 12:45 Calculated Osmolality 296 mOsm/kg (285-295) H 12/18/24 04:37 Lactic Acid 1.7 mmol/L (0.5-2.2) 12/17/24 12:45 Calcium 8.6 mg/dL (8.5-10.5) 12/18/24 04:37 Phosphorus 3.2 mg/dL (2.5-4.5) 12/18/24 04:37 Magnesium 2.0 mg/dL (1.7-2.3) 12/18/24 04:37 Iron 16 ug/dL (37-145) L 12/17/24 12:45 TIBC 209 mcg/dl 12/17/24 12:45 % Saturation 7.6 % (20-50) L 12/17/24 12:45 Unsat Iron Binding 193 ug/dL (112-347) 12/17/24 12:45 Total Bilirubin 0.4 mg/dL (0.15-1.2) 12/18/24 04:37 AST 15 U/L (0-32) 12/18/24 04:37 ALT 15 U/L (0-33) 12/18/24 04:37 Alkaline Phosphatase 102 U/L (35-105) 12/18/24 04:37 Lactate Dehydrogenase 203 U/L (135-214) 12/17/24 12:43 Troponin T Baseline < 6 ng/L (0-10) 12/17/24 12:45 Troponin T 120 Minute 7.31 ng/L (0-10) 12/17/24 15:15 Delta Troponin T 1.32881 ABS# (0-10) 12/17/24 15:15 Troponin T Hi Sens 6Hr 6.00 ng/L (0-10) 12/17/24 18:14 Troponin T Hi Sens 6Hr Delta 0.56027 ng/L (0-12) 12/17/24 18:14 NT-Pro-B Natriuret Pep 869 pg/mL (0-125) H 12/17/24 12:45 Total Protein 6.3 g/dL (6.6-8.7) L 12/18/24 04:37 Albumin 3.1 g/dL (3.5-5.2) L 12/18/24 04:37 Globulin 3.2 g/dL (1.3-4.6) 12/18/24 04:37 Triglycerides 90 mg/dL (0-150) 12/18/24 04:37 Cholesterol 139 mg/dL (0-200) 12/18/24 04:37 LDL Cholesterol, Calc 88 mg/dL (50-129) 12/18/24 04:37 HDL Cholesterol 33 mg/dL (60-100) L 12/18/24 04:37 LDL/HDL Ratio 2.67 RATIO (0.00-3.22) 12/18/24 04:37 Cholesterol/HDL Ratio 4.21 mg/dL (0.0-4.40) 12/18/24 04:37 Vitamin B12 > 2000 pg/mL (232-1245) H 12/17/24 12:45 Folate 17.5 ng/mL (4.8-37.3) 12/18/24 04:37 Procalcitonin 0.05 ng/mL (0-0.5) 12/18/24 04:37 TSH 2.13 uIU/mL (0.27-4.20) 12/17/24 12:45 Urine Color Yellow (Yellow) 12/17/24 22:00 Urine Appearance Clear (CLEAR) 12/17/24 22:00 Urine pH 6.0 (5-7) 12/17/24 22:00 Ur Specific [place] 1.057 (1.005-1.030) H 12/17/24 22:00 Urine Protein 2+ (Negative) A 12/17/24 22:00 Urine Glucose (UA) Trace (Normal) H 12/17/24 22:00 Urine Ketones 1+ (Negative) H 12/17/24 22:00 Urine Blood Trace (Negative) A 12/17/24 22:00 Urine Nitrate Negative (Negative) 12/17/24 22:00 Urine Bilirubin Negative (Negative) 12/17/24 22:00 Urine Urobilinogen 1.0 mg/dL (Negative) 12/17/24 22:00 Ur Leukocyte Esterase Negative (Negative) 12/17/24 22:00 Urine RBC 6-10 /hpf (0-2) 12/17/24 22:00 Urine WBC 0-5 /hpf (0-5) 12/17/24 22:00 Ur Squamous Epith Cells 0-5 /hpf (0-5) 12/17/24 22:00 Amorphous Sediment Not Reportable 12/17/24 22:00 Urine Bacteria None seen /hpf (NONE) 12/17/24 22:00 Hyaline Casts 1.21 /lpf 12/17/24 22:00 Nasal MRSA (PCR) Not detected (Not Detecte) 12/17/24 20:35 Coronavirus (PCR) Negative (Negative) 12/17/24 14:08 Influenza A (PCR) Negative (Negative) 12/17/24 14:08 Influenza Type B (PCR) Negative (Negative) 12/17/24 14:08 RSV (PCR) Negative (Negative) 12/17/24 14:08 Vitals Last Vital Signs Temp 98.6 F 12/18/24 12:00 Pulse 100 12/18/24 14:01 Resp 18 12/18/24 14:01 BP 122/74 12/18/24 12:00 Pulse Ox 95 12/18/24 14:01 O2 Del Method Nasal Cannula 12/18/24 14:01 O2 Flow Rate 3 12/18/24 14:01 Discharge Plan Discharge Patient Disposition: Home Condition: Stable Prescriptions: New albuterol sulfate [Ventolin HFA] 90 mcg/actuation HFA aerosol inhaler 2 inh inhalation Q8H PRN (Reason: shortness of breath or wheezing) Qty: 6.7 4RF Breo Ellipta 50-25 mcg/dose blister with device 1 inh inhalation Q24H Qty: 60 5RF methylprednisolone [Medrol (Ricardo)] 4 mg tablets,dose pack See Rx Instructions .ROUTE .COMPLEX Qty: 21 0RF Rx Instructions: orally per package directions nicotine 7 mg/24 hr patch 24 hour 1 patch transdermal DAILY Qty: 14 0RF Spiriva Respimat 1.25 mcg/actuation mist 2 inh inhalation DAILY Qty: 4 5RF Discontinued alprazolam 0.5 mg tablet 0.5 mg PO BEDTIME PRN (Reason: sleep) Qty: 30 5RF Discharge Orders: Discharge Order (Routine); Ordered 12/19/24 Ordered By: Fransisco Aguilar Other Ambulatory Orders: DME: Oxygen (Order) Location: None Selected Ordered By: Fransisco Aguilar Referrals: [facility] [Outside] Nasim Caballero MD [Primary Care Provider] - Patient Instructions: Opioid Safety Discharge Attestations Time Spent in Discharge Care*: greater than 30 min Quality Metrics Clinical Quality Measures [ No reported AMI, CVA or VTE this stay] Coding Level of Care Code Acute Code for g Fwd Diagnoses URI (upper respiratory infection) J06.9 Community acquired pneumonia J18.9 Laterality: unspecified laterality Acute exacerbation of chronic obstructive airways disease J44.1 Hypoxic respiratory failure J96.91 Smoker F17.200 Night sweats R61
[2024-12-19 10:51] VITALS: BP 126/65; PULSE 90; RESP 17; TEMP 36.8; O2SAT 91
[2024-12-19 12:04] VITALS: BP 126/65; PULSE 90; RESP 17; TEMP 36.8; O2SAT 94
[2024-12-21 14:54] LABS: Quantiferon Mitogen 0.04 IU/mL; Quantiferon Nil 0.02 IU/mL; Quantiferon Plus TB1 <0.00 IU/mL; Quantiferon Plus TB2 <0.00 IU/mL; Quantiferon TB Gold INDETERMINATE (NEGATIVE)
[2024-12-23 07:35] LABS: Fungitell 1-3-B Glucan Assay <31 pg/ml; Interpretation Negative (Negative)
== END 2024-12-19 11:55 | disposition home or self-care (01) | DRG 193 ==
LOC: ER 14:16 → ER IP 17:54 → MEDSURG 17:57
PROVIDERS: Admitting Provider Student in an Organized Health Care Education/Training Program; Emergency Provider Emergency Medicine; PCP Family Medicine; Visit Provider Internal Medicine
DX: J18.9 Pneumonia, unspecified organism (principal); J96.01 Acute respiratory failure with hypoxia; J44.0 Chronic obstructive pulmonary disease with (acute) lower respiratory infection; J44.1 Chronic obstructive pulmonary disease with (acute) exacerbation; E46 Unspecified protein-calorie malnutrition; Z68.1 Body mass index [BMI] 19.9 or less, adult; F17.200 Nicotine dependence, unspecified, uncomplicated; J40 Bronchitis, not specified as acute or chronic; R61 Generalized hyperhidrosis; G47.00 Insomnia, unspecified; E86.0 Dehydration
CPT/HCPCS: 36415; 36600; 71045; 71275; 80053; 80061; 81001; 82607; 82746; 82805; 83036; 83540; 83550; 83605; 83615; 83735; 83880; 84100; 84145; 84443; 84484; 85025; 85378; 86403; 86480; 87040; 87070; 87205; 87449; 87637; 87801; 93005; 94640; 94664; 94760; 96365; 96372; 96375; 99285; J0456; J0696; J1644; J2470; J2919; J7050; J7120; J7614; J7626; J7644; Q0144